=== PATIENT | female | born 1995 | race Two or more races ===

== ENCOUNTER 2023-01-09 16:35 | Inpatient (IN) | payer MEDICAID ==
[~2023-01-09] VITALS: Ht 157.5 cm; Wt 116.6 kg
[2023-01-09] MEDS ORDERED: METHYLERGONOVINE 0.2 MG/ML AMP IM PRN (17:45)
[2023-01-09] MEDS ORDERED: OXYTOCIN 10 UNITS/ML VIAL IM SCH (17:45)
[2023-01-09] MEDS ORDERED: PNV91TAB8 PO (17:45)
[2023-01-09] MEDS ORDERED: CARBOPROST 250 MCG/ML AMP IM PRN (17:45)
[2023-01-09 18:19] LABS: BASOPHILS % (AUTO) 0.2 % (0.0-2.0); EOSINOPHILS # (AUTO) 0.1 K/uL (0-0.4); EOSINOPHILS % (AUTO) 0.9 % (0.0-4.0); HEMATOCRIT 35.5 % (36-48); HEMOGLOBIN 11.6 g/dL (12.0-16.0); LYMPHOCYTES # (AUTO) 2.3 K/uL (2.5-16.5); LYMPHOCYTES % (AUTO) 18.6 % (20.5-51.1); MEAN CORPUSCULAR HEMOGLOBIN 28 pg (27-31); MEAN CORPUSCULAR HGB CONC 33 g/dL (33-37); MEAN CORPUSCULAR VOLUME 84.6 fL (80-94); MONOCYTES # (AUTO) 0.7 K/uL (0.8-1.0); NEUTROPHILS % (AUTO) 74.3 % (42.2-75.2); PLATELET COUNT (AUTO) 240 K/uL (140-450); RED CELL DISTRIBUTION WIDTH 14.8 % (11.6-13.7); WHITE BLOOD COUNT (AUTO) 12.1 K/uL (4.8-10.8)
[2023-01-09 19:07] LABS: PROTHROMBIN TIME 9.3 secs (10.8-13.4)
[2023-01-09 19:10] LABS: ALBUMIN 2.8 g/dL (3.4-5.0); ANION GAP 13.8 (8-16); CARBON DIOXIDE 24.8 mmol/L (21-32); CREATININE 0.6 mg/dL (0.6-1.3); POTASSIUM 3.6 mmol/L (3.5-5.1); TOTAL BILIRUBIN 0.5 mg/dL (0.0-1.0)
[2023-01-09 19:27] VITALS: BP 140/72
[2023-01-09] MEDS: LACTATED RINGERS 1,000 ML IV SCH (21:16)
[2023-01-09] MEDS ORDERED: MISOPROSTOL 25 MCG TAB VG SCH (22:00)
[2023-01-09] MEDS ORDERED: AMPICILLIN 2,000 MG in NACL 0.9% MINI-BAG PLUS 100 ML IV SCH (22:00)
[2023-01-09] MEDS ORDERED: MORPHINE SULFATE 5 MG/ML VIAL IVP PRN (22:00)
[2023-01-09] MEDS ORDERED: ONDANSETRON 4 MG/2 ML VIAL IVP PRN (22:00)
[2023-01-10] MEDS ORDERED: AMPICILLIN 1,000 MG in NACL 0.9% MINI-BAG PLUS 50 ML IV SCH (02:00)
[2023-01-10] MEDS: LACTATED RINGERS 1,000 ML IV SCH ×3 (05:15→22:53)
[2023-01-10] MEDS: MISOPROSTOL 25 MCG TAB VG SCH ×4 (06:00→18:03)
[2023-01-10 08:50] LABS: APPEARANCE,URINE CLEAR (CLEAR); BILIRUBIN,URINE NEGATIVE (NEGATIVE); BLOOD, URINE NEGATIVE (NEGATIVE); COLOR,URINE YELLOW (YELLOW); LEUKOCYTE ESTERASE ,URINE 1+ (NEGATIVE); NITRITE, URINE NEGATIVE (NEGATIVE); PH,URINE 6.5 (5.0-9.0); UGLUCOSE NEGATIVE (NEGATIVE)
[2023-01-10 09:07] LABS: RBC,URINE 0-5 /HPF (0-5)
[2023-01-11] MEDS: MISOPROSTOL 25 MCG TAB VG SCH ×2 (00:06→07:59)
[2023-01-11] MEDS: LACTATED RINGERS 1,000 ML IV SCH (07:35)
--- NOTE | 2023-01-11 08:34 | NUR ---
PATIENT HAS BEEN SCREENED AND CATEGORIZED LOW NUTRITION RISK. PATIENT WILL BE SEEN WITHIN 7 DAYS OF ADMISSION. 01/09/23-01/16/[address]
[2023-01-11] MEDS ORDERED: MORPHINE SULFATE 10 MG/ML VIAL ONE (14:42)
[2023-01-11] MEDS ORDERED: AMPICILLIN 2,000 MG VIAL ONE (14:58)
[2023-01-11] MEDS ORDERED: OXYTOCIN 20 UNITS in LACTATED RINGERS 1,000 ML IV SCH (15:00)
[2023-01-11] MEDS ORDERED: AMPICILLIN 2,000 MG in NACL 0.9% 100 ML IV ONE (15:00)
[2023-01-11] MEDS ORDERED: OXYTOCIN 20 UNITS/LR PREMIX 1,000 ML IV ONE (15:16)
[2023-01-11] MEDS ORDERED: METHYLERGONOVINE 0.2 MG/ML AMP IM PRN (16:40)
[2023-01-11] MEDS ORDERED: BENZOCAINE/MENTHOL 20%-0.5% 60 GM CAN TP PRN (16:40)
[2023-01-11] MEDS ORDERED: METHYLERGONOVINE 0.2 MG TAB PO PRN (16:40)
[2023-01-11] MEDS ORDERED: IBUPROFEN 600 MG TAB PO PRN (16:40)
[2023-01-12 08:53] LABS: HEMATOCRIT 32.1 % (36-48); HEMOGLOBIN 10.6 g/dL (12.0-16.0)
== END 2023-01-13 13:45 | disposition home or self-care (01) | DRG 560 ==
LOC: MFCC 16:35 → MLD 17:08 → MFCC 01-11 19:19
PROVIDERS: ADMIT Obstetrics & Gynecology; ATTEND Obstetrics & Gynecology
PROC: 10E0XZZ Delivery of Products of Conception, External Approach (ICD-10-PCS; principal; 2023-01-11)
PROC: 3E0R3BZ Introduction of Anesthetic Agent into Spinal Canal, Percutaneous Approach (ICD-10-PCS; 2023-01-11)
PROC: 00HU33Z Insertion of Infusion Device into Spinal Canal, Percutaneous Approach (ICD-10-PCS; 2023-01-11)
DX: O80 Encounter for full-term uncomplicated delivery (principal); Z37.0 Single live birth; Z20.822 Contact with and (suspected) exposure to COVID-19; Z3A.40 40 weeks gestation of pregnancy
CPT/HCPCS: 36415; 59200; 59409; 76815; 80053; 81001; 85018; 85025; 85610; 85730; 86592; 86886; 86900; 86901; 87086; J0290; J2270; J2405; J2590; J7120; Q0092